=== PATIENT | male | born 1975 | race Caucasian/White ===

== ENCOUNTER 2023-02-09 21:27 | Emergency (ER) | payer OTHER ==
[~2023-02-09] VITALS: Ht 165.1 cm; Wt 66.2 kg
[2023-02-09 22:06] VITALS: BP 133/84; TEMP 98.6
[2023-02-09] MEDS ORDERED: NEOM10DR11 EACH EAR (22:14)
[2023-02-09 22:28] VITALS: O2SAT 99
== END 2023-02-09 22:28 | disposition home or self-care (01) ==
LOC: ER 21:32
DX: H60.93 Unspecified otitis externa, bilateral (principal); Z88.0 Allergy status to penicillin